=== PATIENT | male | born 1975 | race Caucasian/White ===

== ENCOUNTER 2023-03-15 10:42 | Outpatient (AMB) | payer MEDICAID, SELFPAY ==
--- NOTE | 2023-03-15 10:54 | A.SPINEOV_ITS ---
Intake Intake Visit Reasons: thoracic back pain Intake Note: Mr. Nicole is here today c/o mid-back pain. MRI done @ [facility]/brought disc. Lining Printer Required: No Assessment & Plan Assessment & Plan (1) Thoracic back pain: Code(s): M54.6 - Pain in thoracic spine Plan Dear colleague Thank you for referring Theodore Nicole to the office today with a chief complaint of right paravertebral thoracic pain. HPI: 3 years ago he developed a pain located in the right paravertebral area at T7-T8 without a precipitating event. He describes it as a constant muscle cramp. Twisting increases the pain. The pain is independent of respiratory function. The pain is not radicular in nature. He denies numbness. No skin abnormalities. He tried chiropractic therapy and anti-inflammatories without success. He had 1 trigger point injection. PMH: Gout, hypertension Medications: Losartan, allopurinol Allergies: NKDA Social history: Nonsmoker. commercial front load driver Physical Exam: Pleasant male. On exam I am able to localize the pain in the right T7-T8 area approximately 5 cm off the midline. There is no swelling. There is no redness. Axial loading is negative. Compression of the thoracic cavity produces no additional pain. Radiological Studies: MRI of the thoracic spine done at [facility] Rodger Velazquez reviews no anatomical abnormalities that can explain his pain. Impression/Plan: This 47-year-old male is suffering from an unexplained constant thoracic pain in the paravertebral region which is muscular in nature. I have no therapeutic options. The good news is that the thoracic spine is basically normal. He wants to try acupuncture. Thank you for allowing me to participate in your patients care. total time spent was 30 minutes in counseling ,coordination of plan, personal review of imaging, surgical decision making and subsequent plan Orion Vasquez MD, PhD Spine Fellowship Trained Neurosurgeon Director, [facility] Coding Level of Care Code New Pt Level 3 (82680) Diagnoses Thoracic back pain M54.6
== END 2023-03-15 11:29 | disposition home or self-care (01) ==
PROVIDERS: PCP Nurse Practitioner Family; Referring Provider Nurse Practitioner Family; Visit Provider Neurological Surgery
DX: M54.6 Pain in thoracic spine (principal)
CPT/HCPCS: 99203

== ENCOUNTER → 2023-03-15 10:42 | Outpatient (BNVA) | payer OTHER, MEDICAID, SELFPAY | PROVIDERS: PCP Nurse Practitioner Family; Referring Provider Nurse Practitioner Family; Visit Provider Neurological Surgery ==